=== PATIENT | female | born 1970 | race Caucasian/White ===

== ENCOUNTER 2024-02-06 10:22 | Outpatient (CLI) | payer OTHER | END 2024-02-06 10:23 | disposition home or self-care (01) | LOC: CSHULT 10:22 | PROVIDERS: ATTEND Nurse Practitioner Family | DX: R22.42 Localized swelling, mass and lump, left lower limb (principal); M67.972 Unspecified disorder of synovium and tendon, left ankle and foot | CPT/HCPCS: 76999 ==